=== PATIENT | male | born 1940 | race Caucasian/White ===

== ENCOUNTER 2017-02-11 09:44 | Emergency (ER) | payer MEDICARE ==
[~2017-02-11] VITALS: Ht 177.8 cm; Wt 105.0 kg
[2017-02-11 09:45] VITALS: BP 143/62; PULSE 82; RESP 20; TEMP 99.7; O2SAT 95
[2017-02-11 10:11] VITALS: BP 121/60; PULSE 83; RESP 20; TEMP 98.6; O2SAT 96
[2017-02-11 10:21] VITALS: O2SAT 95
[2017-02-11] MEDS ORDERED: SODIUM CHLORIDE 0.9% FLUSH 10 ML FLUSH IVF PRN (10:30)
--- NOTE | 2017-02-11 10:43 | PD ---
HPI Chief Complaint: Cold / Flu Symptoms Time Seen by Provider: 10:20 Travel History International Travel<30 days: No Contact w/Intl Traveler<30days: No Traveled to known affect area: No History of Present Illness HPI Patient 76-year-old male presenting to the emergency for evaluation of a cough. Patient states he had cold symptoms 2 weeks ago that started with nasal congestion, nasal congestion has improved however he continues to have a cough that is occasionally productive with yellow sputum. He denies any fevers, chills, nausea, vomiting, chest pain, abdominal pain, shortness of breath. Patient states he typically gets pneumonia this time a beer and has had it twice in the last 2 years. Patient is from [place]. Patient has had the pneumonia vaccine in fall of 2015. PFSH Past Medical History Hx Anticoagulant Therapy: Yes (ASPIRIN) AAA: Yes Cardiac Catheterization: Yes High Cholesterol: Yes Cerebrovascular Accident: Yes Coronary Artery Disease: Yes Diabetes: Yes Patient Takes Glucophage: No Hypertension: Yes Thyroid Disease: Yes Tetanus Vaccination: < 5 Years Influenza Vaccination: Yes PNEUMOCCOCAL Vaccine (Year): 2015 ?: Not Past Surgical History Abdominal Aneurysm Repair: Yes Abdominal Surgery: Yes (WHIPPLE, HERNIA REPAIR ) Coronary Artery Bypass Graft: Yes Eye Surgery: Yes (CATARACTS ) Social History Alcohol Use: No Tobacco Use: No (remote history quit 20+ years ago) Substance Use: No Allergies-Medications (Allergen,Severity, Reaction): Coded Allergies: No Known Allergies (Unverified , 02/11/17) Reported Meds & Prescriptions Reported Meds & Active Scripts Active Azithromycin 250 Mg Tab 250 Mg PO DIRECTED Take 2 tabs (500 mg) on day 1 then 1 tab daily x 4 days. Review of Systems Except as stated in HPI: all other systems reviewed are Neg General / Constitutional: No: Fever, Chills HENT: No: Headaches, Sore Throat Cardiovascular: No: Chest Pain or Discomfort Respiratory: Positive: Cough, No: Shortness of Breath, Wheezing, Night Sweats Gastrointestinal: No: Nausea, Vomiting, Diarrhea, Abdominal Pain Musculoskeletal: No: Myalgias Neurologic: No: Weakness, Dizziness, Focal Abnormalities Physical Exam Narrative GENERAL: Well-developed, well-nourished, alert elderly gentleman. Resting comfortably in no acute distress. SKIN: Focused skin assessment warm/dry. HEAD: Atraumatic. Normocephalic. EYES: Pupils equal and round. No scleral icterus. No injection or drainage. ENT: No nasal bleeding or discharge. Mucous membranes pink and moist. NECK: Trachea midline. No JVD. CARDIOVASCULAR: Regular rate and rhythm. No murmur appreciated. RESPIRATORY: No accessory muscle use. Clear to auscultation. Breath sounds equal bilaterally. No wheezes, rhonchi, or rales noted. GASTROINTESTINAL: Abdomen soft, non-tender, nondistended. Hepatic and splenic margins not palpable. MUSCULOSKELETAL: No obvious deformities. No clubbing. No cyanosis. No edema. NEUROLOGICAL: Awake and alert. No obvious cranial nerve deficits. Motor grossly within normal limits. Normal speech. PSYCHIATRIC: Appropriate mood and affect; insight and judgment normal. Data Data Last Documented VS Vital Signs Date Time Temp Pulse Resp B/P Pulse Ox O2 Delivery O2 Flow Rate FiO2 02/11/17 10:21 95 Room Air 02/11/17 10:15 83 20 02/11/17 10:11 98.6 121/60 Orders Complete Blood Count With Diff (02/11/17 10:16) Comprehensive Metabolic Panel (02/11/17 10:16) Iv Access Insert/Monitor (02/11/17 10:16) Ecg Monitoring (02/11/17 10:16) Oximetry (02/11/17 10:16) Chest, Pa & Lat (02/11/17 10:16) Sodium Chloride 0.9% Flush (Ns Flush) (02/11/17 10:30) Methylprednisolone So Succ Inj (Solumedr (02/11/17 11:30) Albuterol-Ipratropium Neb (Duoneb Neb) (02/11/17 11:30) Labs Laboratory Tests Test 02/11/17 10:26 White Blood Count 12.6 TH/MM3 Red Blood Count 3.78 MIL/MM3 Hemoglobin 11.0 GM/DL Hematocrit 34.8 % Mean Corpuscular Volume 92.1 FL Mean Corpuscular Hemoglobin 29.2 PG Mean Corpuscular Hemoglobin 31.7 % Concent Red Cell Distribution Width 13.0 % Platelet Count 226 TH/MM3 Mean Platelet Volume 9.5 FL Neutrophils (%) (Auto) 75.1 % Lymphocytes (%) (Auto) 11.1 % Monocytes (%) (Auto) 10.2 % Eosinophils (%) (Auto) 3.4 % Basophils (%) (Auto) 0.2 % Neutrophils # (Auto) 9.4 TH/MM3 Lymphocytes # (Auto) 1.4 TH/MM3 Monocytes # (Auto) 1.3 TH/MM3 Eosinophils # (Auto) 0.4 TH/MM3 Basophils # (Auto) 0.0 TH/MM3 CBC Comment DIFF FINAL Differential Comment Sodium Level 139 MEQ/L Potassium Level 4.4 MEQ/L Chloride Level 105 MEQ/L Carbon Dioxide Level 25.1 MEQ/L Anion Gap 9 MEQ/L Blood Urea Nitrogen 25 MG/DL Creatinine 1.21 MG/DL Estimat Glomerular Filtration 58 ML/MIN Rate Random Glucose 158 MG/DL Calcium Level 9.1 MG/DL Total Bilirubin 0.6 MG/DL Aspartate Amino Transf 22 U/L (AST/SGOT) Alanine Aminotransferase 30 U/L (ALT/SGPT) Alkaline Phosphatase 50 U/L Total Protein 7.2 GM/DL Albumin 3.5 GM/DL MDM Medical Decision Making Medical Screen Exam Complete: Yes Emergency Medical Condition: Yes Interpretation(s) Laboratory Tests Test 02/11/17 10:26 White Blood Count 12.6 TH/MM3 Red Blood Count 3.78 MIL/MM3 Hemoglobin 11.0 GM/DL Hematocrit 34.8 % Mean Corpuscular Volume 92.1 FL Mean Corpuscular Hemoglobin 29.2 PG Mean Corpuscular Hemoglobin 31.7 % Concent Red Cell Distribution Width 13.0 % Platelet Count 226 TH/MM3 Mean Platelet Volume 9.5 FL Neutrophils (%) (Auto) 75.1 % Lymphocytes (%) (Auto) 11.1 % Monocytes (%) (Auto) 10.2 % Eosinophils (%) (Auto) 3.4 % Basophils (%) (Auto) 0.2 % Neutrophils # (Auto) 9.4 TH/MM3 Lymphocytes # (Auto) 1.4 TH/MM3 Monocytes # (Auto) 1.3 TH/MM3 Eosinophils # (Auto) 0.4 TH/MM3 Basophils # (Auto) 0.0 TH/MM3 CBC Comment DIFF FINAL Differential Comment Sodium Level 139 MEQ/L Potassium Level 4.4 MEQ/L Chloride Level 105 MEQ/L Carbon Dioxide Level 25.1 MEQ/L Anion Gap 9 MEQ/L Blood Urea Nitrogen 25 MG/DL Creatinine 1.21 MG/DL Estimat Glomerular Filtration 58 ML/MIN Rate Random Glucose 158 MG/DL Calcium Level 9.1 MG/DL Total Bilirubin 0.6 MG/DL Aspartate Amino Transf 22 U/L (AST/SGOT) Alanine Aminotransferase 30 U/L (ALT/SGPT) Alkaline Phosphatase 50 U/L Total Protein 7.2 GM/DL Albumin 3.5 GM/DL Last Impressions Chest X-Ray 02/11/17 1016 Signed Impressions: Service Date/Time: Saturday, February 11, 2017 10:50 - CONCLUSION: Chronic interstitial changes and mild cardiomegaly. No acute abnormality. Shoaib Bates MD Vital Signs Date Time Temp Pulse Resp B/P Pulse Ox O2 Delivery O2 Flow Rate FiO2 02/11/17 10:21 95 Room Air 02/11/17 10:15 83 20 96 Room Air 02/11/17 10:11 98.6 83 20 121/60 96 02/11/17 09:45 99.7 82 20 143/62 95 Room Air Differential Diagnosis Acute bronchitis versus pneumonia versus postinfectious cough versus viral URI versus other Narrative Course Patient is a 76-year-old male presenting to the emergency evaluation of 2 weeks of a cough. Patient is a history of pneumonia which he typically gets this time of year. He has had it for the last 2 years in January. Patient's vital signs are stable, he is well oxygenated on room air. We'll obtain chest x-ray and labs. at bedside. Chest x-ray shows interstitial changes, mild cardiomegaly. No acute disease noted. CBC with a mildly elevated white count at 12.6 with a left shift of 75.1. Chemistry is unremarkable. Patient will be given DuoNeb 3 as well as a dose of IV Solu-Medrol. Pulse ox is 95% on room air. We'll reassess after breathing treatments. Patient reports improvement, patient will be traveling home he was advised to follow-up with his primary doctor upon arrival. He was encouraged go to the nearest emergency department for any new or worsening symptoms while traveling home. Patient and verbalized understanding of instructions. Patient is stable for discharge. Diagnosis Primary Impression: Acute bronchitis Qualified Code: J20.9 - Acute bronchitis, unspecified organism Referrals: Primary Care Physician 3 days Patient Instructions: Acute Bronchitis (ED), General Instructions Additional Instructions: Follow-up with your primary care provider in 2-3 days Complete full course of antibiotics as directed Return to emergency department for any new or worsening symptoms Do not drive or operate heavy machinery while taking narcotic cough medication Med/Other Pt SpecificInfo: Prescription(s) given Scripts Hydrocodone-Homatropine Liq 5-1.5 Mg/5 Ml Syrp5 Ml PO Q6H PRN (COUGH) #100 ML Ref 0 Prov:Vijay Vallecillo MD 02/11/17 Azithromycin 250 Mg [id number] Mg PO DIRECTED #6 TAB Ref 0 Take 2 tabs (500 mg) on day 1 then 1 tab daily x 4 days. Prov:Danette Serna 02/11/17 Disposition: 01 DISCHARGE HOME Condition: Stable Danette Serna Feb 11, 2017 10:43
[2017-02-11 10:58] LABS: AUTOMATED NEUTROPHIL # 9.4 TH/MM3 (1.8-7.7); BASOPHIL % 0.2 % (0.0-2.0); EOSINOPHIL # 0.4 TH/MM3 (0-0.4); EOSINOPHIL % 3.4 % (0.0-4.0); HEMATOCRIT 34.8 % (39.0-51.0); HEMO FLAGS DIFF FINAL; LYMPH % 11.1 % (9.0-44.0); LYMPHOCYTE # 1.4 TH/MM3 (1.0-4.8); MEAN CELL VOLUME 92.1 FL (80.0-100.0); MEAN CORPUSCULAR HEMOGLOBIN 29.2 PG (27.0-34.0); MEAN CORPUSCULAR HGB CONC 31.7 % (32.0-36.0); MONO % 10.2 % (0.0-8.0); NEUT % 75.1 % (16.0-70.0); PLATELET COUNT 226 TH/MM3 (150-450); RED BLOOD COUNT 3.78 MIL/MM3 (4.50-5.90); WHITE BLOOD COUNT 12.6 TH/MM3 (4.0-11.0)
--- NOTE | 2017-02-11 11:05 | RADRPT ---
EXAM DATE/TIME: 02/11/2017 10:50 [facility] COMPARISON: No previous studies available for comparison. INDICATIONS : Cough, congestion. MEDICAL HISTORY : SURGICAL HISTORY : Whipple, 2 cabg surgeries ENCOUNTER: Initial ACUITY: 1 day PAIN SCORE: 0/10 LOCATION: Bilateral chest FINDINGS: The patient is post median sternotomy. The heart is enlarged. There are chronic interstitial changes within the parenchyma. The lungs are otherwise clear. The visualized bony structures are grossly inta ct. CONCLUSION: Chronic interstitial changes and mild cardiomegaly. No acute abnormality. Shoaib Bates MD on February 11, 2017 at 11:03 Board Certified Radiologist. This report was verified electronically.
[2017-02-11 11:20] LABS: ANION GAP 9 MEQ/L (5-15); AST (GOT) 22 U/L (15-37); BICARBONATE 25.1 MEQ/L (21.0-32.0); BLOOD UREA NITROGEN 25 MG/DL (7-18); CHLORIDE 105 MEQ/L (98-107); GLOMERULAR FILTRATION RATE 58 ML/MIN (>89); POTASSIUM 4.4 MEQ/L (3.5-5.1); SODIUM (NA) 139 MEQ/L (136-145)
[2017-02-11 11:23] LABS: ALKALINE PHOSPHATASE 50 U/L (45-117); ALT (GPT) 30 U/L (12-78); TOTAL BILIRUBIN ADULT 0.6 MG/DL (0.2-1.0)
[2017-02-11] MEDS ORDERED: methylPREDNISolone SOD SUCC 125 MG/2 ML VIAL IVP ONE (11:30)
[2017-02-11] MEDS: RESP: ALBUTEROL 2.5 MG/IPRATROPIUM 0.5 MG NEB (SCH) INH ×2 (11:59→12:00)
[2017-02-11] MEDS ORDERED: AZIT250T3 PO (12:18)
[2017-02-11] MEDS ORDERED: HYDR5SYP10 PO (12:19)
[2017-02-11 12:45] VITALS: BP 139/67; PULSE 80; RESP 20; TEMP 99.1; O2SAT 95
== END 2017-02-11 12:46 | disposition home or self-care (01) ==
LOC: NEPA 09:44
DX: J20.9 Acute bronchitis, unspecified (principal)
CPT/HCPCS: 71020; 80053; 85025; 94640; 94664; 96374; 99283; J2930